=== PATIENT | male | born 1960 | race African-American/Black ===

== ENCOUNTER 2021-08-08 10:31 | Inpatient (IN) ==
[2021-08-08] MEDS ORDERED: NS 0.9% 1000 ml BAG 1,000 ML IV ONE (11:07)
[2021-08-08 11:58] LABS: Venous Bicarbonate HCO3 25.7 mmol/L (24-28)
[2021-08-08 12:26] LABS: Hematocrit 44 % (42-52); Hemoglobin 14.9 g/dL (14.0-18.0); Mean Corpuscular HGB Conc 34 g/dL (31-36); Mean Corpuscular Hemoglobin 31 pg (27-31); Mean Corpuscular Volume 91 fL (80-94); Mean Platelet Volume 8.2 fL (7.4-10.4); Platelet Count 203 10^3/uL (150-450); Red Blood Count 4.87 10^6 /uL (4.18-5.48); Red Cell Distribution Width 15 % (10-15); White Blood Count 9.5 10^3/uL (3.5-10.8)
[2021-08-08 12:27] LABS: Rapid COVID-19 Molecular Detected (Undetected)
[2021-08-08 12:33] LABS: ALT 121 U/L (7-52); AST 181 U/L (13-39); Albumin 3.4 g/dL (3.2-5.2); Alkaline Phosphatase 75 U/L (35-149); Anion Gap 13 mmol/L (2-11); Blood Urea Nitrogen 17 mg/dL (6-24); C Reactive Protein 162.03 mg/L (<8.01); CO2 Carbon Dioxide 23 mmol/L (22-32); Calcium 8.1 mg/dL (8.6-10.3); Chloride 101 mmol/L (101-111); Globulin 3.5 g/dL (2-4); Glucose 158 mg/dL (70-100); Potassium 3.9 mmol/L (3.5-5.0); Sodium 137 mmol/L (135-145); Total Protein 6.9 g/dL (6.4-8.9)
[2021-08-08 12:34] LABS: Influenza A Molecular Negative (Negative); Influenza B Molecular Negative (Negative)
[2021-08-08 12:36] LABS: Troponin I 0.04 ng/mL (<0.03)
[2021-08-08 12:38] LABS: Activated Partial Thrombo Time 28.9 seconds (26.0-38.0); INR 1.05 (0.86-1.15)
[2021-08-08 12:50] LABS: ABS Lymphocytes 0.4 10^3/ul (1.0-4.8); ABS Monocytes 0.4 10^3/ul (0-0.8); ABS Neutrophils 8.7 10^3/ul (1.5-7.7); Lymphocyte % 4.2 %; Nucleated Red Blood Cells % 0.1
[2021-08-08] MEDS ORDERED: Iohexol 350 (CONTRAST) 500 ML MDV IV ONE (13:04)
[2021-08-08 13:44] LABS: LDH 1442 U/L (140-271)
[2021-08-08 14:13] LABS: PCO2 Arterial 30 mmHg (35-45)
[2021-08-08 14:15] LABS: PO2 Arterial 49 mmHg (80-100)
[2021-08-08 14:24] LABS: Ferritin 6008.4 ng/mL (24-336)
[2021-08-08] MEDS ORDERED: Dexamethasone IV 4 MG/ML VIAL 1 ml VIAL IV SLOW PU ONE (14:33)
[2021-08-08] MEDS ORDERED: Remdesivir 100 mg Vial 200 MG in NS 0.9% 250 ml 210 ML IV ONE (14:34)
[2021-08-08] MEDS ORDERED: Enoxaparin 40 MG/0.4 ML SYR SUBCUT SCH (15:00)
[2021-08-08] MEDS ORDERED: Tocilizumab 200 MG/10 ML 10 ml VIAL IVPB ONE (15:47)
[2021-08-08] MEDS ORDERED: NS 0.9% IVPB ONE (16:00)
[2021-08-08] MEDS ORDERED: TOCILIZUMAB IVPB ONE (16:00)
[2021-08-08] MEDS ORDERED: Lactated Ringers 1000 ml BAG 1,000 ML IV ONE (16:49)
[2021-08-08 18:06] LABS: Albumin 3.1 g/dL (3.2-5.2); Albumin/Globulin Ratio 0.9 (1-3); Calcium 8.2 mg/dL (8.6-10.3); Globulin 3.4 g/dL (2-4); Potassium 4.1 mmol/L (3.5-5.0); Total Bilirubin 0.6 mg/dL (0.2-1.0); Total Protein 6.5 g/dL (6.4-8.9)
[2021-08-08 18:08] LABS: INR 1.1 (0.86-1.15)
[2021-08-08 23:46] LABS: Urine Appearance Clear; Urine Bilirubin Negative (Negative); Urine Blood 2+ (Negative); Urine Color Amber; Urine Glucose Negative (Negative); Urine Ketones Negative (Negative); Urine Nitrite Negative (Negative); Urine Protein 3+(>=500 mg/dL) (Negative); Urine Urobilinogen Positive (Negative)
[2021-08-08 23:50] LABS: Urine Bacteria Absent (Absent); Urine Red Blood Cell 2+(6-10/hpf) (Absent); Urine Squamous Epithelial Cell Present (Absent); Urine White Blood Cell 1+(6-10/hpf) (Absent)
[2021-08-09 01:34] LABS: Urine Specific Gravity > 1.060 (1.002-1.030)
[2021-08-09 05:50] LABS: ABS Lymphocytes 0.7 10^3/ul (1.0-4.8); ABS Monocytes 0.2 10^3/ul (0-0.8); ABS Neutrophils 6.5 10^3/ul (1.5-7.7); Eosinophil % 0.1 %; Hematocrit 42 % (42-52); Hemoglobin 13.9 g/dL (14.0-18.0); Lymphocyte % 9.9 %; Mean Corpuscular HGB Conc 33 g/dL (31-36); Mean Corpuscular Hemoglobin 30 pg (27-31); Mean Corpuscular Volume 91 fL (80-94); Mean Platelet Volume 8.2 fL (7.4-10.4); Nucleated Red Blood Cells % 0.1; Platelet Count 205 10^3/uL (150-450); Red Blood Count 4.63 10^6 /uL (4.18-5.48); Red Cell Distribution Width 16 % (10-15); White Blood Count 7.5 10^3/uL (3.5-10.8)
[2021-08-09 06:03] LABS: INR 1.14 (0.86-1.15)
[2021-08-09 06:07] LABS: Albumin 2.8 g/dL (3.2-5.2); Albumin/Globulin Ratio 0.9 (1-3); Globulin 3.1 g/dL (2-4); Potassium 4.1 mmol/L (3.5-5.0); Total Bilirubin 0.5 mg/dL (0.2-1.0); Total Protein 5.9 g/dL (6.4-8.9)
[2021-08-09] MEDS: methylPREDNISolone SOD 40 mg/ml 1 ml VIAL IV SCH ×2 (08:45→16:30)
[2021-08-09] MEDS ORDERED: Dexamethasone IV 4 MG/ML VIAL 1 ml VIAL IV SLOW PU SCH (09:00)
[2021-08-09 09:05] LABS: PCO2 Arterial 32 mmHg (35-45); PO2 Arterial 70 mmHg (80-100)
[2021-08-09] MEDS: Pantoprazole VIAL 40 MG VIAL IV SCH (09:05)
[2021-08-09] MEDS: cefTRIAXone 1 gm/50 mL NS BAG 1 GM/50 ML BAG IVPB SCH (10:09)
[2021-08-09] MEDS: Enoxaparin 40 MG/0.4 ML SYR SUBCUT SCH ×2 (11:05→20:43)
[2021-08-09 11:13] LABS: Hepatitis B Surface Antigen Nonreactive (Nonreactive)
[2021-08-09 11:18] LABS: Hepatitis A Ab IgM Negative (Negative)
[2021-08-09 11:19] LABS: Hepatitis B Core IgM Nonreactive (Nonreactive)
[2021-08-09 11:31] LABS: Hepatitis C Antibody Negative (Negative)
[2021-08-09 14:27] LABS: Urine Appearance Clear; Urine Bilirubin Negative (Negative); Urine Blood 2+ (Negative); Urine Color Amber; Urine Glucose Negative (Negative); Urine Ketones Negative (Negative); Urine Nitrite Negative (Negative); Urine Protein 3+(>=500 mg/dL) (Negative); Urine Specific Gravity 1.037 (1.002-1.030); Urine Urobilinogen Positive (Negative)
[2021-08-09 14:37] LABS: Urine Bacteria Absent (Absent); Urine Red Blood Cell 1+(3-5/hpf) (Absent); Urine Squamous Epithelial Cell Present (Absent); Urine White Blood Cell Trace(0-5/hpf) (Absent)
[2021-08-09] MEDS: Remdesivir 100 mg Vial 100 MG in NS 0.9% 250 ml 230 ML IV SCH (21:52)
[2021-08-10] MEDS: methylPREDNISolone SOD 40 mg/ml 1 ml VIAL IV SCH ×3 (01:04→15:02)
[2021-08-10 04:39] LABS: ABS Lymphocytes 0.6 10^3/ul (1.0-4.8); ABS Monocytes 0.3 10^3/ul (0-0.8); Hematocrit 42 % (42-52); Hemoglobin 14.1 g/dL (14.0-18.0); Lymphocyte % 7.2 %; Mean Corpuscular HGB Conc 34 g/dL (31-36); Mean Corpuscular Hemoglobin 31 pg (27-31); Mean Corpuscular Volume 91 fL (80-94); Mean Platelet Volume 8.2 fL (7.4-10.4); Platelet Count 233 10^3/uL (150-450); Red Blood Count 4.62 10^6 /uL (4.18-5.48); Red Cell Distribution Width 16 % (10-15); White Blood Count 8.9 10^3/uL (3.5-10.8)
[2021-08-10 04:45] LABS: INR 1.15 (0.86-1.15)
[2021-08-10 04:56] LABS: Albumin 2.8 g/dL (3.2-5.2); Albumin/Globulin Ratio 0.9 (1-3); Calcium 8.2 mg/dL (8.6-10.3); Globulin 3.1 g/dL (2-4); Potassium 4.2 mmol/L (3.5-5.0); Total Bilirubin 0.4 mg/dL (0.2-1.0); Total Protein 5.9 g/dL (6.4-8.9)
[2021-08-10] MEDS: cefTRIAXone 1 gm/50 mL NS BAG 1 GM/50 ML BAG IVPB SCH (09:07)
[2021-08-10] MEDS: Pantoprazole VIAL 40 MG VIAL IV SCH (09:07)
[2021-08-10] MEDS: Enoxaparin 40 MG/0.4 ML SYR SUBCUT SCH ×2 (09:07→19:31)
[2021-08-10] MEDS: Azithromycin 500 mg/250 ml NS 500 MG/250 ML BAG IVPB SCH (15:02)
[2021-08-10] MEDS: Remdesivir 100 mg Vial 100 MG in NS 0.9% 250 ml 230 ML IV SCH (21:33)
[2021-08-11] MEDS: methylPREDNISolone SOD 40 mg/ml 1 ml VIAL IV SCH ×4 (01:20→23:21)
[2021-08-11 04:41] LABS: INR 1.12 (0.86-1.15)
[2021-08-11 04:51] LABS: Albumin 2.8 g/dL (3.2-5.2); Albumin/Globulin Ratio 1.2 (1-3); Calcium 7.1 mg/dL (8.6-10.3); Globulin 2.4 g/dL (2-4); Potassium 3.8 mmol/L (3.5-5.0); Total Bilirubin 0.4 mg/dL (0.2-1.0); Total Protein 5.2 g/dL (6.4-8.9)
[2021-08-11] MEDS: Pantoprazole VIAL 40 MG VIAL IV SCH (09:15)
[2021-08-11] MEDS: cefTRIAXone 1 gm/50 mL NS BAG 1 GM/50 ML BAG IVPB SCH (09:15)
[2021-08-11] MEDS: Enoxaparin 40 MG/0.4 ML SYR SUBCUT SCH ×2 (09:15→20:04)
[2021-08-11] MEDS: Azithromycin 500 mg/250 ml NS 500 MG/250 ML BAG IVPB SCH (14:45)
[2021-08-11] MEDS: Remdesivir 100 mg Vial 100 MG in NS 0.9% 250 ml 230 ML IV SCH (21:01)
[2021-08-12 04:52] LABS: ABS Lymphocytes 0.7 10^3/ul (1.0-4.8); ABS Monocytes 0.6 10^3/ul (0-0.8); ABS Neutrophils 13.1 10^3/ul (1.5-7.7); Eosinophil % 0.1 %; Hematocrit 44 % (42-52); Hemoglobin 14.4 g/dL (14.0-18.0); Lymphocyte % 4.8 %; Mean Corpuscular HGB Conc 33 g/dL (31-36); Mean Corpuscular Hemoglobin 30 pg (27-31); Mean Corpuscular Volume 91 fL (80-94); Mean Platelet Volume 8.5 fL (7.4-10.4); Platelet Count 286 10^3/uL (150-450); Red Blood Count 4.78 10^6 /uL (4.18-5.48); Red Cell Distribution Width 15 % (10-15); White Blood Count 14.5 10^3/uL (3.5-10.8)
[2021-08-12 05:01] LABS: INR 1.09 (0.86-1.15)
[2021-08-12 05:13] LABS: Albumin 3.1 g/dL (3.2-5.2); Calcium 8.2 mg/dL (8.6-10.3); Potassium 4.3 mmol/L (3.5-5.0); Total Bilirubin 0.5 mg/dL (0.2-1.0); Total Protein 6.1 g/dL (6.4-8.9)
[2021-08-12] MEDS: cefTRIAXone 1 gm/50 mL NS BAG 1 GM/50 ML BAG IVPB SCH (09:22)
[2021-08-12] MEDS: Pantoprazole VIAL 40 MG VIAL IV SCH (09:22)
[2021-08-12] MEDS: Enoxaparin 40 MG/0.4 ML SYR SUBCUT SCH ×2 (09:22→20:34)
[2021-08-12] MEDS: Azithromycin 500 mg/250 ml NS 500 MG/250 ML BAG IVPB SCH (14:00)
[2021-08-12] MEDS: methylPREDNISolone SOD 40 mg/ml 1 ml VIAL IV SCH ×2 (14:00→23:59)
[2021-08-12] MEDS: Remdesivir 100 mg Vial 100 MG in NS 0.9% 250 ml 230 ML IV SCH (21:09)
[2021-08-13 05:34] LABS: ABS Lymphocytes 0.6 10^3/ul (1.0-4.8); ABS Monocytes 0.3 10^3/ul (0-0.8); ABS Neutrophils 12.7 10^3/ul (1.5-7.7); Eosinophil % 0.1 %; Hematocrit 45 % (42-52); Hemoglobin 15.1 g/dL (14.0-18.0); Lymphocyte % 4.3 %; Mean Corpuscular HGB Conc 34 g/dL (31-36); Mean Corpuscular Hemoglobin 30 pg (27-31); Mean Corpuscular Volume 91 fL (80-94); Mean Platelet Volume 8.5 fL (7.4-10.4); Nucleated Red Blood Cells % 0.1; Platelet Count 278 10^3/uL (150-450); Red Blood Count 4.98 10^6 /uL (4.18-5.48); Red Cell Distribution Width 15 % (10-15); White Blood Count 13.7 10^3/uL (3.5-10.8)
[2021-08-13 05:40] LABS: INR 1.15 (0.86-1.15)
[2021-08-13 05:54] LABS: Albumin 3.3 g/dL (3.2-5.2); Albumin/Globulin Ratio 1.1 (1-3); Calcium 8.5 mg/dL (8.6-10.3); Globulin 3.1 g/dL (2-4); Potassium 4.3 mmol/L (3.5-5.0); Total Bilirubin 0.6 mg/dL (0.2-1.0); Total Protein 6.4 g/dL (6.4-8.9)
[2021-08-13] MEDS: cefTRIAXone 1 gm/50 mL NS BAG 1 GM/50 ML BAG IVPB SCH (08:38)
[2021-08-13] MEDS: Enoxaparin 40 MG/0.4 ML SYR SUBCUT SCH ×2 (09:17→21:30)
[2021-08-13] MEDS: Pantoprazole VIAL 40 MG VIAL IV SCH (09:18)
[2021-08-14 06:48] LABS: Hematocrit 49 % (42-52); Hemoglobin 16.2 g/dL (14.0-18.0); Mean Corpuscular HGB Conc 33 g/dL (31-36); Mean Corpuscular Hemoglobin 30 pg (27-31); Mean Corpuscular Volume 90 fL (80-94); Mean Platelet Volume 8.6 fL (7.4-10.4); Platelet Count 288 10^3/uL (150-450); Red Blood Count 5.37 10^6 /uL (4.18-5.48); Red Cell Distribution Width 15 % (10-15); White Blood Count 12.2 10^3/uL (3.5-10.8)
[2021-08-14 08:25] LABS: ABS Eosinophils 0.1 10^3/ul (0-0.6); ABS Lymphocytes 0.9 10^3/ul (1.0-4.8); ABS Monocytes 0.4 10^3/ul (0-0.8); ABS Neutrophils 10.8 10^3/ul (1.5-7.7); Eosinophil % 0.4 %; Large Platelets Present; Lymphocyte % 7.7 %
[2021-08-14] MEDS: Pantoprazole VIAL 40 MG VIAL IV SCH (08:56)
[2021-08-14] MEDS: cefTRIAXone 1 gm/50 mL NS BAG 1 GM/50 ML BAG IVPB SCH (09:08)
[2021-08-14] MEDS ORDERED: Haloperidol 5 mg/ml SDV IV/IM 5 MG/ML AMP IV SLOW PU PRN (10:18)
[2021-08-14] MEDS: Enoxaparin 40 MG/0.4 ML SYR SUBCUT SCH (12:12)
[2021-08-15 04:56] LABS: ABS Eosinophils 0.1 10^3/ul (0-0.6); ABS Lymphocytes 0.7 10^3/ul (1.0-4.8); ABS Monocytes 0.2 10^3/ul (0-0.8); ABS Neutrophils 10.6 10^3/ul (1.5-7.7); Eosinophil % 0.8 %; Hematocrit 51 % (42-52); Hemoglobin 16.7 g/dL (14.0-18.0); Lymphocyte % 5.9 %; Mean Corpuscular HGB Conc 33 g/dL (31-36); Mean Corpuscular Hemoglobin 30 pg (27-31); Mean Corpuscular Volume 91 fL (80-94); Mean Platelet Volume 9.1 fL (7.4-10.4); Platelet Count 243 10^3/uL (150-450); Red Blood Count 5.53 10^6 /uL (4.18-5.48); Red Cell Distribution Width 15 % (10-15); White Blood Count 11.6 10^3/uL (3.5-10.8)
[2021-08-15 05:04] LABS: Calcium 8.8 mg/dL (8.6-10.3); Magnesium 2.3 mg/dL (1.9-2.7); Phosphorus 3.4 mg/dL (2.5-5.0); Potassium 4.2 mmol/L (3.5-5.0)
[2021-08-15] MEDS: Pantoprazole VIAL 40 MG VIAL IV SCH (09:15)
[2021-08-15] MEDS: Enoxaparin 40 MG/0.4 ML SYR SUBCUT SCH (09:27)
[2021-08-15] MEDS: cefTRIAXone 1 gm/50 mL NS BAG 1 GM/50 ML BAG IVPB SCH (09:28)
[2021-08-16] MEDS: Enoxaparin 40 MG/0.4 ML SYR SUBCUT SCH (09:13)
[2021-08-17 07:25] LABS: ALT 339 U/L (7-52); AST 298 U/L (13-39); Albumin 3.5 g/dL (3.2-5.2); Albumin/Globulin Ratio 1.2 (1-3); Alkaline Phosphatase 182 U/L (35-149); Anion Gap 10 mmol/L (2-11); Blood Urea Nitrogen 42 mg/dL (6-24); CO2 Carbon Dioxide 23 mmol/L (22-32); Calcium 8.8 mg/dL (8.6-10.3); Chloride 104 mmol/L (101-111); Globulin 2.9 g/dL (2-4); Glucose 131 mg/dL (70-100); Potassium 4.1 mmol/L (3.5-5.0); Sodium 137 mmol/L (135-145); Total Protein 6.4 g/dL (6.4-8.9)
[2021-08-17] MEDS ORDERED: Iohexol 350 (CONTRAST) 500 ML MDV IV ONE (10:49)
[2021-08-17] MEDS: Enoxaparin 40 MG/0.4 ML SYR SUBCUT SCH (10:54)
[2021-08-17 11:29] LABS: Urine Appearance Cloudy; Urine Bilirubin Negative (Negative); Urine Blood 3+ (Negative); Urine Color Amber; Urine Glucose Negative (Negative); Urine Ketones Negative (Negative); Urine Nitrite Negative (Negative); Urine Protein 2+(100 mg/dL) (Negative); Urine Specific Gravity 1.028 (1.002-1.030); Urine Urobilinogen Negative (Negative)
[2021-08-17 12:13] LABS: Urine Bacteria Absent (Absent); Urine Red Blood Cell 2+(6-10/hpf) (Absent); Urine Red Blood Cell Casts Present (Absent); Urine Squamous Epithelial Cell Present (Absent); Urine White Blood Cell 1+(6-10/hpf) (Absent)
[2021-08-17 12:24] LABS: Creatine Kinase > 18000 U/L (10-223)
[2021-08-17 12:26] LABS: INR 1.35 (0.86-1.15)
[2021-08-17] MEDS ORDERED: Heparin 5000 UNITS/ML 1 mL VIAL IV SCH (13:00)
[2021-08-17] MEDS ORDERED: Heparin DRIP 25,000 UNITS BAG 25,000 UNITS/500 ML BAG IV SCH (13:00)
[2021-08-17] MEDS ORDERED: NS 0.9% 1000 ml BAG 1,000 ML IV SCH (13:00)
[2021-08-17 13:38] LABS: ABS Lymphocytes 0.6 10^3/ul (1.0-4.8); ABS Monocytes 0.2 10^3/ul (0-0.8); ABS Neutrophils 13.5 10^3/ul (1.5-7.7); Eosinophil % 0.1 %; Hematocrit 49 % (42-52); Hemoglobin 16.6 g/dL (14.0-18.0); Lymphocyte % 4.2 %; Mean Corpuscular HGB Conc 34 g/dL (31-36); Mean Corpuscular Hemoglobin 30 pg (27-31); Mean Corpuscular Volume 90 fL (80-94); Mean Platelet Volume 8.8 fL (7.4-10.4); Platelet Count 183 10^3/uL (150-450); Red Blood Count 5.48 10^6 /uL (4.18-5.48); Red Cell Distribution Width 15 % (10-15); White Blood Count 14.3 10^3/uL (3.5-10.8)
[2021-08-17] MEDS ORDERED: Morphine 2 MG/ML SYRINGE IV PRN (13:48)
[2021-08-17 16:12] LABS: Calcium 8.6 mg/dL (8.6-10.3); Potassium 4.8 mmol/L (3.5-5.0)
[2021-08-17 18:34] LABS: Rapid COVID-19 Molecular Detected (Undetected)
[2021-08-17 20:47] VITALS: BP 110/74
== END 2021-08-17 21:00 | disposition short-term general hospital (02) | DRG 177 ==
LOC: ED 10:31 → SUATTDRO 14:28 → ICU 14:28 → MED 08-15 22:41
PROVIDERS: ADMIT Internal Medicine; ATTEND Pediatrics

== ENCOUNTER 2021-11-13 10:52 | Inpatient (IN) ==
[2021-11-14] MEDS ORDERED: Senna TAB 8.6 mg TAB PO PRN (19:26)
[2021-11-14] MEDS ORDERED: TIMOLOL BOTH EYES SCH (21:00)
[2021-11-14] MEDS ORDERED: BRIMONID BOTH EYES SCH (21:00)
[2021-11-15 06:40] LABS: ABS Basophils 0.1 10^3/ul (0-0.2); ABS Eosinophils 0.2 10^3/ul (0-0.6); ABS Lymphocytes 2.7 10^3/ul (1.0-4.8); ABS Monocytes 0.7 10^3/ul (0-0.8); ABS Neutrophils 4.1 10^3/ul (1.5-7.7); Eosinophil % 2.2 %; Hematocrit 37 % (42-52); Hemoglobin 12.1 g/dL (14.0-18.0); Mean Corpuscular HGB Conc 33 g/dL (31-36); Mean Corpuscular Hemoglobin 30 pg (27-31); Mean Corpuscular Volume 91 fL (80-94); Mean Platelet Volume 7.6 fL (7.4-10.4); Platelet Count 375 10^3/uL (150-450); Red Blood Count 4.06 10^6 /uL (4.18-5.48); Red Cell Distribution Width 18 % (10-15); White Blood Count 7.6 10^3/uL (3.5-10.8)
[2021-11-15 06:58] LABS: Albumin 3.6 g/dL (3.2-5.2); Albumin/Globulin Ratio 1.2 (1-3); Calcium 9.7 mg/dL (8.6-10.3); Potassium 4.2 mmol/L (3.5-5.0); Total Bilirubin 0.2 mg/dL (0.2-1.0); Total Protein 6.6 g/dL (6.4-8.9); eGFR CKD-EPI 121.4 (>60)
[2021-11-15] MEDS: PTO: Brimonidine 0.2% 5 ML BTL BOTH EYES SCH ×2 (10:05→21:31)
[2021-11-15] MEDS: PTO: Timolol 0.5% OPTH.SOL BTL BOTH EYES SCH ×2 (10:05→21:36)
[2021-11-16] MEDS: PTO: Timolol 0.5% OPTH.SOL BTL BOTH EYES SCH ×2 (10:38→21:41)
[2021-11-16] MEDS: PTO: Brimonidine 0.2% 5 ML BTL BOTH EYES SCH ×2 (10:38→21:39)
[2021-11-17] MEDS: PTO: Brimonidine 0.2% 5 ML BTL BOTH EYES SCH ×2 (08:59→21:28)
[2021-11-17] MEDS: PTO: Timolol 0.5% OPTH.SOL BTL BOTH EYES SCH ×2 (09:00→21:24)
[2021-11-18] MEDS: PTO: Timolol 0.5% OPTH.SOL BTL BOTH EYES SCH ×2 (09:01→20:43)
[2021-11-18] MEDS: PTO: Brimonidine 0.2% 5 ML BTL BOTH EYES SCH ×2 (09:01→20:43)
[2021-11-19] MEDS: PTO: Brimonidine 0.2% 5 ML BTL BOTH EYES SCH ×2 (09:40→21:10)
[2021-11-19] MEDS: PTO: Timolol 0.5% OPTH.SOL BTL BOTH EYES SCH ×2 (09:40→21:06)
[2021-11-20] MEDS: PTO: Brimonidine 0.2% 5 ML BTL BOTH EYES SCH ×2 (08:18→20:51)
[2021-11-20] MEDS: PTO: Timolol 0.5% OPTH.SOL BTL BOTH EYES SCH ×2 (08:18→20:51)
[2021-11-21] MEDS: PTO: Timolol 0.5% OPTH.SOL BTL BOTH EYES SCH ×2 (07:24→21:39)
[2021-11-21] MEDS: PTO: Brimonidine 0.2% 5 ML BTL BOTH EYES SCH ×2 (07:28→21:36)
[2021-11-22 06:30] LABS: ABS Basophils 0.1 10^3/ul (0-0.2); ABS Eosinophils 0.2 10^3/ul (0-0.6); ABS Lymphocytes 2.5 10^3/ul (1.0-4.8); ABS Monocytes 0.6 10^3/ul (0-0.8); ABS Neutrophils 3.3 10^3/ul (1.5-7.7); Eosinophil % 2.4 %; Hematocrit 35 % (42-52); Hemoglobin 11.5 g/dL (14.0-18.0); Mean Corpuscular HGB Conc 33 g/dL (31-36); Mean Corpuscular Hemoglobin 29 pg (27-31); Mean Corpuscular Volume 90 fL (80-94); Mean Platelet Volume 7.4 fL (7.4-10.4); Platelet Count 421 10^3/uL (150-450); Red Blood Count 3.92 10^6 /uL (4.18-5.48); Red Cell Distribution Width 17 % (10-15); White Blood Count 6.7 10^3/uL (3.5-10.8)
[2021-11-22 06:53] LABS: Albumin 3.4 g/dL (3.2-5.2); Calcium 9.8 mg/dL (8.6-10.3); Globulin 3.3 g/dL (2-4); Total Bilirubin 0.3 mg/dL (0.2-1.0); Total Protein 6.7 g/dL (6.4-8.9); eGFR CKD-EPI 120.5 (>60)
[2021-11-22] MEDS: PTO: Brimonidine 0.2% 5 ML BTL BOTH EYES SCH ×2 (09:07→21:10)
[2021-11-22] MEDS: PTO: Timolol 0.5% OPTH.SOL BTL BOTH EYES SCH ×2 (09:07→21:04)
[2021-11-23] MEDS: PTO: Timolol 0.5% OPTH.SOL BTL BOTH EYES SCH ×2 (08:41→21:04)
[2021-11-23] MEDS: PTO: Brimonidine 0.2% 5 ML BTL BOTH EYES SCH ×2 (08:41→21:03)
[2021-11-24] MEDS: PTO: Brimonidine 0.2% 5 ML BTL BOTH EYES SCH ×2 (09:50→20:38)
[2021-11-24] MEDS: PTO: Timolol 0.5% OPTH.SOL BTL BOTH EYES SCH ×2 (09:50→20:43)
[2021-11-25] MEDS: PTO: Brimonidine 0.2% 5 ML BTL BOTH EYES SCH ×2 (09:39→21:15)
[2021-11-25] MEDS: PTO: Timolol 0.5% OPTH.SOL BTL BOTH EYES SCH ×2 (09:42→21:17)
[2021-11-26] MEDS: PTO: Timolol 0.5% OPTH.SOL BTL BOTH EYES SCH ×2 (08:39→21:07)
[2021-11-26] MEDS: PTO: Brimonidine 0.2% 5 ML BTL BOTH EYES SCH ×2 (08:39→21:08)
[2021-11-27] MEDS: PTO: Timolol 0.5% OPTH.SOL BTL BOTH EYES SCH ×2 (10:01→21:08)
[2021-11-27] MEDS: PTO: Brimonidine 0.2% 5 ML BTL BOTH EYES SCH ×2 (10:01→21:08)
[2021-11-28] MEDS: PTO: Brimonidine 0.2% 5 ML BTL BOTH EYES SCH ×2 (08:59→20:27)
[2021-11-28] MEDS: PTO: Timolol 0.5% OPTH.SOL BTL BOTH EYES SCH ×2 (08:59→20:23)
[2021-11-29 06:17] VITALS: BP 121/74
[2021-11-29 06:57] LABS: ABS Eosinophils 0.2 10^3/ul (0-0.6); ABS Lymphocytes 2.6 10^3/ul (1.0-4.8); ABS Monocytes 0.7 10^3/ul (0-0.8); ABS Neutrophils 3.1 10^3/ul (1.5-7.7); Eosinophil % 2.2 %; Hematocrit 34 % (42-52); Lymphocyte % 39.5 %; Mean Corpuscular HGB Conc 33 g/dL (31-36); Mean Corpuscular Hemoglobin 30 pg (27-31); Mean Corpuscular Volume 91 fL (80-94); Mean Platelet Volume 7.5 fL (7.4-10.4); Platelet Count 376 10^3/uL (150-450); Red Cell Distribution Width 17 % (10-15); White Blood Count 6.7 10^3/uL (3.5-10.8)
[2021-11-29 07:16] LABS: Albumin 3.3 g/dL (3.2-5.2); Globulin 3.2 g/dL (2-4); Potassium 3.8 mmol/L (3.5-5.0); Total Bilirubin 0.3 mg/dL (0.2-1.0); Total Protein 6.5 g/dL (6.4-8.9); eGFR CKD-EPI 111.6 (>60)
[2021-11-29] MEDS: PTO: Timolol 0.5% OPTH.SOL BTL BOTH EYES SCH (09:06)
[2021-11-29] MEDS: PTO: Brimonidine 0.2% 5 ML BTL BOTH EYES SCH (09:06)
[2021-11-29] MEDS ORDERED: COVID-19 VACCINE, TRIS(PFIZER)/PF 30 MCG/0.3 ML IM ONE (11:00)
== END 2021-11-29 14:21 | disposition home health service (06) | DRG 949 ==
LOC: PMRU 11-14 12:59
PROVIDERS: ADMIT Physical Medicine & Rehabilitation; ATTEND Physical Medicine & Rehabilitation